=== PATIENT | female | born 1970 | race African-American/Black ===

== ENCOUNTER 2021-02-03 07:44 | Emergency (ER) | payer OTHER ==
[2021-02-03 08:13] VITALS: BP 152/102; PULSE 72; TEMP 98.6; BMI 34.4
[2021-02-03] MEDS ORDERED: NAPROXEN 500 MG TABLET PO ONE (08:15)
[2021-02-03] MEDS ORDERED: NAPROXEN 500 MG TABLET ONE (08:20)
== END 2021-02-03 09:23 | disposition home or self-care (01) ==
LOC: FER 07:44
DX: S89.91XA Unspecified injury of right lower leg, initial encounter (principal); W01.0XXA Fall on same level from slipping, tripping and stumbling without subsequent striking against object, initial encounter; X50.0XXA Overexertion from strenuous movement or load, initial encounter
CPT/HCPCS: 73562-TC-RT-FY; 99283-25

== ENCOUNTER 2021-11-06 15:19 | Emergency (ER) | payer OTHER ==
[2021-11-06] MEDS ORDERED: SODIUM CHLORIDE 0.9% 500 ML INFUS.BAG IV ONE (16:29)
[2021-11-06] MEDS ORDERED: KETOROLAC TROMETHAMINE 15 MG/ML VIAL IVPUSH ONE (16:29)
[2021-11-06] MEDS ORDERED: KETOROLAC TROMETHAMINE 15 MG/ML VIAL ONE (17:11)
[2021-11-06 17:15] LABS: HEMATOCRIT 35.6 % (32.4-45.2); HEMOGLOBIN 12.3 G/dL (10.7-15.3); MCH 28.8 pg (25.7-33.7); MCHC 34.5 g/dl (32.0-36.0); MEAN CELL VOLUME 83.6 fl (80-96); MEAN PLT VOLUME 8.2 fl (7.5-11.1); PLATELET COUNT 378.9 10^3/uL (134-434); RBC 4.26 10^6/uL (3.60-5.2); RDW 16.1 % (11.6-15.6); WHITE BLOOD COUNT 6.9 10^3/uL (4.0-10.8)
[2021-11-06 17:18] VITALS: BP 135/86; PULSE 79; RESP 18; TEMP 98.5; BMI 35.4
[2021-11-06 17:34] LABS: ALBUMIN 3.5 g/dl (3.4-5.0); CALCIUM 9.1 mg/dl (8.5-10); CREATININE 0.9 mg/dl (0.55-1.3); TOT PROT 6.8 g/dl (6.4-8.2)
[2021-11-06 18:08] LABS: PLATELET ESTIMATE ADEQUATE
== END 2021-11-06 18:25 | disposition home or self-care (01) ==
LOC: FER 15:19
PROC: 3E0333Z Introduction of Anti-inflammatory into Peripheral Vein, Percutaneous Approach (ICD-10-PCS; principal; 2021-11-06)
DX: M79.601 Pain in right arm (principal)
CPT/HCPCS: 36415; 70450-TC; 80053; 83735; 84484; 85025; 93005; 99285-25

== ENCOUNTER 2022-12-16 16:43 | Emergency (ER) | payer OTHER ==
[2022-12-16 17:03] VITALS: BP 134/84; PULSE 82; RESP 18; TEMP 98.3; BMI 34.6
[2022-12-16] MEDS ORDERED: KETOROLAC TROMETHAMINE 30 MG/1 ML VIAL IM ONE (17:08)
[2022-12-16] MEDS ORDERED: LIDOCAINE 4% PATCH TP ONE (17:09)
[2022-12-16] MEDS ORDERED: ACETAMINOPHEN 500 MG TABLET (FP) PO ONE (17:09)
[2022-12-16] MEDS ORDERED: LIDOCAINE 5% TOPICAL PATCH ONE (17:12)
[2022-12-16] MEDS ORDERED: KETOROLAC TROMETHAMINE 30 MG/1 ML VIAL ONE (17:12)
[2022-12-16] MEDS ORDERED: ACETAMINOPHEN 500 MG TABLET (FP) ONE (17:12)
[2022-12-16] MEDS ORDERED: LIDOCAINE PATCH REMOVAL MC SCH (22:00)
== END 2022-12-16 19:11 | disposition home or self-care (01) ==
LOC: FER 16:43
PROC: 3E0233Z Introduction of Anti-inflammatory into Muscle, Percutaneous Approach (ICD-10-PCS; principal; 2022-12-16)
DX: M54.50 Low back pain, unspecified (principal); S61.411A Laceration without foreign body of right hand, initial encounter; M79.605 Pain in left leg; W19.XXXA Unspecified fall, initial encounter; Y99.0 Civilian activity done for income or pay
CPT/HCPCS: 72100-TC-FY; 99284-25